=== PATIENT | female | born 1975 | race Two or more races ===

== ENCOUNTER → 2020-01-10 09:49 | Outpatient (CLI) | payer OTHER | END | disposition home or self-care (01) | LOC: LAB 09:49 | PROVIDERS: ATTEND Specialist | DX: Z20.828 Contact with and (suspected) exposure to other viral communicable diseases (principal); J45.998 Other asthma ==

== ENCOUNTER 2021-03-05 10:45 | Outpatient (CLI) | payer OTHER | END 2021-03-05 12:00 | disposition home or self-care (01) | LOC: PPH VACUNA 10:45 | PROVIDERS: ATTEND Emergency Medicine Pediatric Emergency Medicine | DX: Z23 Encounter for immunization (principal) ==

== ENCOUNTER 2022-03-18 07:13 | Outpatient (CLI) | payer OTHER | END 2022-03-18 07:16 | disposition home or self-care (01) | LOC: LAB 07:13 | PROVIDERS: ATTEND Specialist | DX: R97.1 Elevated cancer antigen 125 [CA 125] (principal); D50.9 Iron deficiency anemia, unspecified; E83.51 Hypocalcemia; N39.0 Urinary tract infection, site not specified; E78.00 Pure hypercholesterolemia, unspecified; D68.9 Coagulation defect, unspecified ==

== ENCOUNTER 2022-05-04 14:10 | Outpatient (CLI) | payer OTHER | END 2022-05-04 14:16 | disposition home or self-care (01) | LOC: RAD 14:10 | PROVIDERS: ATTEND Specialist | DX: Z01.811 Encounter for preprocedural respiratory examination (principal) ==

== ENCOUNTER 2022-05-11 07:32 | Outpatient (CLI) | payer OTHER | END 2022-05-11 07:37 | disposition home or self-care (01) | LOC: LAB 07:32 | PROVIDERS: ATTEND Internal Medicine | DX: D25.9 Leiomyoma of uterus, unspecified (principal) ==

== ENCOUNTER 2022-05-12 12:58 | Inpatient (IN) | payer OTHER ==
[~2022-05-12] VITALS: Ht 170.2 cm; Wt 69.9 kg
[2022-05-16] MEDS ORDERED: IBUPROFEN800 MG PO (08:02)
== END 2022-05-16 10:13 | disposition home or self-care (01) | DRG 743 ==
LOC: OB/GYN 05-13 06:00 → O/R 05-13 06:00 → SURH 05-13 08:20 → OB/GYN 05-13 12:54
PROVIDERS: ADMIT Specialist; ATTEND Specialist
PROC: 0UT70ZZ Resection of Bilateral Fallopian Tubes, Open Approach (ICD-10-PCS; 2022-05-13)
PROC: 0UT20ZZ Resection of Bilateral Ovaries, Open Approach (ICD-10-PCS; 2022-05-13)
PROC: 0UT90ZZ Resection of Uterus, Open Approach (ICD-10-PCS; principal; 2022-05-13 10:15)
DX: D25.1 Intramural leiomyoma of uterus (principal); D25.2 Subserosal leiomyoma of uterus; D25.0 Submucous leiomyoma of uterus; N72 Inflammatory disease of cervix uteri; N84.0 Polyp of corpus uteri; N83.311 Acquired atrophy of right ovary; N83.312 Acquired atrophy of left ovary; N83.11 Corpus luteum cyst of right ovary; N83.12 Corpus luteum cyst of left ovary; Z20.822 Contact with and (suspected) exposure to COVID-19

== ENCOUNTER 2022-10-31 13:19 | Outpatient (CLI) | payer OTHER ==
[~2022-10-31 13:19] MED LIST: IBUPROFEN800 MG PO
== END 2022-10-31 13:20 | disposition home or self-care (01) ==
LOC: LAB 13:19
PROVIDERS: ATTEND Internal Medicine Cardiovascular Disease
DX: Z03.818 Encounter for observation for suspected exposure to other biological agents ruled out (principal)

== ENCOUNTER 2024-11-21 10:43 | Outpatient (CLI) | payer OTHER ==
[2024-11-21 11:31] LABS: BASO % 0.9 % (0.1-1.2); EOS # 0.17 (0.04-0.54); EOS % 3.1 % (0.7-7.0); HEMATOCRIT 36.1 % (34.1-44.9); HEMOGLOBIN 12.6 g/dL (11.2-15.7); LYMPH # 1.94 (1.18-3.74); MEAN CORPUSCULAR HEMOGLOBIN 26.8 pg (25.6-32.2); MONO # 0.31 (0.24-0.82); MONO % 5.6 % (4.7-12.5); NEUT # 3.07 (1.56-6.13); NEUT % 55.2 % (34.0-71.1); PLATELET COUNT 206 K/uL (163-369); RED CELL DISTRIBUTION WIDTH 13.2 % (11.6-14.4)
[2024-11-21 11:41] LABS: URINE APPEARANCE Clear; URINE BILIRRUBIN Negative (NEGATIVE); URINE BLOOD Negative; URINE COLOR Yellow; URINE GLUCOSE Negative (NEGATIVE); URINE KETONE Negative (NEGATIVE); URINE LEUKOCYTE Negative; URINE NITRATE Negative; URINE PROTEIN Negative (NEGATIVE); URINE UROBILINOGEN 0.2 E.U./dl
[2024-11-21 11:46] LABS: INR 1.01; PARTIAL THROMBOPLASTIN TIME 24.7 SECONDS (22.0-34.0)
[2024-11-21 11:46] LABS: URINE BACTERIA 12.2 uL (0.0-1933); URINE RBC 4.5 uL (0.0-20.8)
[2024-11-21 12:06] LABS: URINE EPITHELIAL CELLS 1.1 uL (0.0-38.8); URINE WBC 0.7 uL (0.0-23.2)
[2024-11-21 12:26] LABS: CALCIUM 9.4 mg/dL (8.5-10.1); CREATININE SERUM 0.59 mg/dL (0.55-1.02); GFR 107.89; POTASSIUM 4.68 mEq/L (3.5-5.1)
== END 2024-11-21 10:47 | disposition home or self-care (01) ==
LOC: LAB 10:43
DX: E11.39 Type 2 diabetes mellitus with other diabetic ophthalmic complication (principal); I15.8 Other secondary hypertension; D68.32 Hemorrhagic disorder due to extrinsic circulating anticoagulants; D69.9 Hemorrhagic condition, unspecified